=== PATIENT | female | born 1945 | race Two or more races ===

== ENCOUNTER 2023-06-08 21:26 | Inpatient (IN) | payer MEDICARE, OTHER ==
[~2023-06-08] VITALS: Ht 162.6 cm; Wt 66.2 kg
[2023-06-08 22:03] LABS: BASOPHILS # (AUTO) 0.1 K/uL (0.0-0.2); BASOPHILS % (AUTO) 0.8 % (0.0-2.0); EOSINOPHILS % (AUTO) 2.4 % (0.0-6.0); HEMATOCRIT 36 % (33-45); HEMOGLOBIN 12.1 g/dL (11.5-14.8); LYMPHOCYTES % (AUTO) 28.7 % (20.0-44.0); MEAN CORPUSCULAR HGB CONC 33 g/dl (31.0-36.0); MEAN CORPUSCULAR VOLUME 91 fL (82-100); MONOCYTES # (AUTO) 0.6 K/uL (0.1-1.30); MONOCYTES % (AUTO) 8.5 % (2.0-12.0); NEUTROPHILS # (AUTO) 4.3 K/uL (1.8-8.9); NEUTROPHILS % (AUTO) 59.6 % (43.0-81.0); PLATELET COUNT (AUTO) 263 K/uL (150-450); RED BLOOD CELL COUNT(AUTO) 3.98 MIL/uL (4.0-5.2); WHITE BLOOD COUNT (AUTO) 7.1 K/uL (4.3-11.0)
[2023-06-08 22:09] LABS: CALCIUM, SERUM 9.1 mg/dL (8.5-10.1); CARBON DIOXIDE 27 mmol/L (21-32); CHLORIDE 106 mmol/L (98-107); CREATININE 0.9 mg/dL (0.6-1.3); GLUCOSE 113 mg/dL (74-106); POTASSIUM 4.1 mmol/L (3.5-5.1); SODIUM SERUM 141 mmol/L (136-145); UREA NITROGEN, BLOOD 24 mg/dL (7-18)
[2023-06-08 22:15] LABS: ALANINE AMINOTRANSFERASE 44 U/L (12-78); ALBUMIN 3.2 g/dL (3.4-5.0); ALCOHOL, BLOOD < 3 mg/dL (0-10); ALKALINE PHOSPHATASE 80 U/L (46-116); ASPARTATE AMINOTRANSFERASE 30 U/L (15-37); BILIRUBIN,DIRECT 0.1 mg/dL (0.0-0.2); BILIRUBIN,TOTAL 0.5 mg/dL (0.2-1.0); TOTAL PROTEIN, SERUM 6.9 g/dL (6.4-8.2)
--- NOTE | 2023-06-08 22:16 | NUR ---
COVID SWAB COLLECTED WITH CORRECT LABEL AND SENT TO LAB
--- NOTE | 2023-06-08 22:40 | NUR ---
PT COMES TO ER FOR AGRESSIVE BEHAVIOR AT [facility]. PT IS A/O X3 NO S/S OF DISTRESS. BLOOD AND URINE COLLECTED.
[2023-06-08 23:41] LABS: BILIRUBIN,URINE NEGATIVE (NEGATIVE); COLOR,URINE YELLOW (YELLOW); LEUKOCYTE ESTERASE ,URINE NEGATIVE (NEGATIVE); NITRITE, URINE POSITIVE (NEGATIVE); PH,URINE 5.5 (5.0-8.0); PROTEIN,URINE NEGATIVE (NEGATIVE); UGLUCOSE NEGATIVE (NEGATIVE)
[2023-06-09 00:02] LABS: BACTERIA,URINE Moderate /HPF (None Seen)
[2023-06-09 00:03] LABS: SQUAMOUS EPITHELIAL CELL,UR Rare /HPF (None Seen)
[2023-06-09] MEDS ORDERED: NITROFURANTOIN/MONOHYDRATE MACROCRYSTALS 100 MG CAPSULE ONE (01:23)
[2023-06-09] MEDS ORDERED: NITROFURANTOIN/MONOHYDRATE MACROCRYSTALS 100 MG CAPSULE PO ONE (01:30)
--- NOTE | 2023-06-09 02:59 | NUR ---
REPORT GIVEN TO GPS STAFF MASSIMO.
[2023-06-09] MEDS ORDERED: QUET50TA PO (03:01)
[2023-06-09] MEDS ORDERED: SIMV-46 PO (03:01)
[2023-06-09] MEDS ORDERED: MULT-754 PO (03:01)
[2023-06-09] MEDS ORDERED: TRIH2TAB3 PO (03:01)
[2023-06-09] MEDS ORDERED: LORA2ORA5 PO (03:01)
[2023-06-09] MEDS ORDERED: FURO-145 PO (03:01)
[2023-06-09] MEDS ORDERED: PRAM0.253 PO (03:01)
[2023-06-09] MEDS ORDERED: ESCI20TA PO (03:01)
--- NOTE | 2023-06-09 03:14 | NUR ---
TRANSFERRED TO 215 IN STABLE CONDITION
[2023-06-09] MEDS ORDERED: MAGNESIUM HYDROXIDE 30 ML UDC PO PRN (04:00)
[2023-06-09] MEDS ORDERED: MAG HYDROX/AL HYDROX/SIMETH 30 ML UDC PO PRN (04:00)
[2023-06-09] MEDS ORDERED: BLOOD SUGAR DIAGNOSTIC 1 EACH STRIP IN ONE (04:00)
[2023-06-09] MEDS ORDERED: ACETAMINOPHEN 325 MG TABLET PO PRN (04:00)
[2023-06-09] MEDS ORDERED: TEMAZEPAM 7.5 MG CAPSULE PO PRN (04:00)
[2023-06-09 04:26] VITALS: BP 126/70; TEMP 98; O2SAT 98
--- NOTE | 2023-06-09 04:43 | NUR ---
RN NOTES : ADMISSION NOTES: ADMITTED THIS 78Y/O FEMALE PATIENT ADMITTED [facility] ED , INITIALLY FROM [facility]. ADMITTED TO 5150 HOLD PER HOLD GD ,DTO , DUE TO INCREASED AGITATION ,AND AGGRESSIVE BEHAVIOR TOWARDS STAFF AT THE FACILITY,UPON FACE TO FACE ASSESSMENT PATIENT IS A&OX2 PARANOID ,ANXIOUS EASILY AGITATED ,DISORGNIZED, DISHELVED,CONFUSED ,COOPERTIVE/UNCOOPERTIVE AT THIS TIME ,POOR DECISION MAKING, NEEDS FREQUENTLY REDIRECTIONS,DENIES SI /HI AT THIS TIME, PT. IS POOR HISTORIAN, POOR INSIGHT ,POOR JUDGEMENT , BOTH MD AWARE AND NOTIFIED OF THE ADMISSION, BELONGINGS CONTRABAND WERE DONE ,PT. REFUSED SIGNS ADMISSION CONSENT PAPER DUE TO CONFUSED , PT. RIGHTS DISCUSS BY SOLUTIONS EXECUTIVE CLOUD SALES , PROVIDE THE PT. WITH HANDBOOK, AND MEDICATIONS GUIDE, ENVIRONMENTAL SAFETY CHECK DONE, ENCOURAGED PT. VERBALIZED ANY FEELING CONCERN TO STAFF, ORIENT TO UNIT POLICY, NO ACUTE DISTRESS NOTED,VITAL SIGNS WNL ,DENIES ANY PAIN AT THIS TIME,WILL CONTINUE TO MONITOR FOR Q15 SAFETY AND BEHAVIOR.
[2023-06-09] MEDS ORDERED: Z GUARD REMEDY 4 OZ OINT TP PRN (06:30)
[2023-06-09 08:00] VITALS: BP 121/77; TEMP 98.3; O2SAT 96
[2023-06-09] MEDS ORDERED: SENN-18 PO (08:54)
[2023-06-09] MEDS ORDERED: ACET-868 PO (08:54)
[2023-06-09] MEDS ORDERED: TYL2T PO (08:54)
[2023-06-09] MEDS: Z GUARD REMEDY 4 OZ OINT TP SCH (09:21)
--- NOTE | 2023-06-09 10:00 | NUR ---
NURSE NOTE: DR WALLS INFORMED THAT MED RECON NEEDS TO BE DONE.
--- NOTE | 2023-06-09 10:33 | NUR ---
NURIA Clinical Note: Pt placed on a 5150 hold for danger to others and GD. Per hold, pt was aggressive at her facility. [place] [address]; ([phone]). NURIA contacted Izabella admin ([phone]) who stated that she would have to discuss with DON and treatment team if pt is welcomed back. NURIA will contact pt's son Nic ([phone]) and discuss treatment/discharge plan.
--- NOTE | 2023-06-09 10:33 | NUR ---
NURIA Initial Discharge Note: Patient currently resides at [address] [place] [address]; ([phone]). NURIA contacted [facility] admin ([phone]) who stated that she would have to discuss with DON and treatment team if pt is welcomed back. NURIA will contact pt's son Nic ([phone]) and discuss treatment/discharge plan. NURIA will work with the MD, family, and treatment team.
--- NOTE | 2023-06-09 12:55 | NUR ---
NURIA Family Contact: SW contacted pt's son Nic ([phone]) and left a voicemail of treatment/discharge plan. SW left a detailed voicemail.
--- NOTE | 2023-06-09 13:04 | NUR ---
Facility Contact: NURIA received a call from Li admin from [facility] ([phone]) who stated that pt cannot return back and has been violent towards the residents. She stated son had agreed to take pt home. NURIA has contacted son and left a voicemail.
[2023-06-09] MEDS: clonazePAM 0.5 MG TABLET PO PRN (14:07)
--- NOTE | 2023-06-09 14:07 | NUR ---
NURSE NOTE: PT AGITATED AT THIS TIME, KLONOPIN PO ADMIN ORDERED. PT AYDEE WELL. WILL CONT TO MONITOR.
--- NOTE | 2023-06-09 14:10 | NUR ---
NURSE NOTE: DR WALLS REMINDED THAT MED RECON NEEDS TO BE DONE.
--- NOTE | 2023-06-09 15:07 | NUR ---
NURSE NOTE: PT CALM AT THIS TIME, KLONOPIN EFFECTIVE. WILL CONT TO MONITOR.
[2023-06-09] MEDS: ESCITALOPRAM OXALATE (10 MG) 10 MG TABLET PO SCH (15:34)
[2023-06-09] MEDS: DIVALPROEX SODIUM 125 MG CAP.SPRINK PO SCH ×3 (15:34→17:10)
[2023-06-09 16:00] VITALS: BP 125/62; TEMP 98; O2SAT 97
[2023-06-09] MEDS ORDERED: SENNOSIDES 8.6 MG TABLET PO PRN (16:30)
--- NOTE | 2023-06-09 16:50 | NUR ---
NURSE NOTE: AROUND 1630 PT STARTED TO GET AGITATED, YELLED AT STAFF AND SCRATCHED HER. DR MCCLENDON NOTIFIED OF EVENT AND ORDERED ZYPREXA 5MG IM X1 NOW. ZYPREXA ADMINISTERED ORDERED TO R GLUTEUS IRINA AT 1645. PT AYDEE WELL. WILL CONT TO MONITOR.
[2023-06-09] MEDS: PRAMIPEXOLE DI-HCL 0.25 MG TABLET PO SCH ×2 (17:00→17:11)
[2023-06-09] MEDS ORDERED: OLANZAPINE 10 MG VIAL IM ONE (17:00)
[2023-06-09] MEDS: TRIHEXYPHENIDYL HCL 2 MG TABLET PO SCH ×2 (17:00→17:10)
[2023-06-09] MEDS: SIMVASTATIN 20 MG TABLET PO SCH (18:00)
--- NOTE | 2023-06-09 20:01 | NUR ---
PRISONER CLASSIFICATION INTERVIEWER NOTE: RECEIVED PATIENT IN BED ASLEEP.BREATHING NON-LABORED WITH EQUAL RISE AND FALL OF THE CHEST.PATIENT IS DISPLAYING NO S/S OF APPARENT DISTRESS.ALERT AND ORIENTED X2,ANXIOUS PARANOID,GETS IRRITABLE EASILY,DISORGANIZED,AND UNSTEADY GAIT.PATIENT HAS NO C/O PAIN AT THIS TIME.ASSISTING AND TURNING AND POSITIONING Q2H FOR CIRCULATION AND COMFORT.BED IN LOWEST ,LOCKED POSITION WITH SIDE RAILS UP X2. ALL NEEDS MET AND ANTICIPATED.WILL CONTINUE TO MONITOR FOR SAFETY AND BEHAVIOR Q15 MINS WITH THE HELP OF STAFF.
[2023-06-09 20:20] VITALS: BP 121/82; TEMP 97.9; O2SAT 97
[2023-06-09] MEDS: OLANZAPINE ZYDIS 5 MG TAB.RAPDIS PO SCH (21:54)
[2023-06-10 07:10] LABS: BASOPHILS # (AUTO) 0.1 K/uL (0.0-0.2); BASOPHILS % (AUTO) 0.9 % (0.0-2.0); EOSINOPHILS % (AUTO) 3.1 % (0.0-6.0); HEMATOCRIT 39 % (33-45); HEMOGLOBIN 12.9 g/dL (11.5-14.8); LYMPHOCYTES % (AUTO) 27.9 % (20.0-44.0); MEAN CORPUSCULAR HGB CONC 33 g/dl (31.0-36.0); MEAN CORPUSCULAR VOLUME 92 fL (82-100); MONOCYTES # (AUTO) 0.7 K/uL (0.1-1.30); MONOCYTES % (AUTO) 10.1 % (2.0-12.0); NEUTROPHILS # (AUTO) 4.2 K/uL (1.8-8.9); PLATELET COUNT (AUTO) 266 K/uL (150-450); RED BLOOD CELL COUNT(AUTO) 4.28 MIL/uL (4.0-5.2); WHITE BLOOD COUNT (AUTO) 7.2 K/uL (4.3-11.0)
[2023-06-10 07:27] LABS: CALCIUM, SERUM 9.3 mg/dL (8.5-10.1); CREATININE 0.7 mg/dL (0.6-1.3); POTASSIUM 4.2 mmol/L (3.5-5.1)
[2023-06-10 08:00] VITALS: BP 161/92; TEMP 98; O2SAT 93
[2023-06-10] MEDS: PRAMIPEXOLE DI-HCL 0.25 MG TABLET PO SCH ×5 (08:23→17:19)
[2023-06-10] MEDS: NITROFURANTOIN/MONOHYDRATE MACROCRYSTALS 100 MG CAPSULE PO SCH ×3 (08:23→21:00)
[2023-06-10] MEDS: DIVALPROEX SODIUM 125 MG CAP.SPRINK PO SCH ×5 (08:23→17:19)
[2023-06-10] MEDS: ESCITALOPRAM OXALATE (10 MG) 10 MG TABLET PO SCH ×2 (08:23→09:00)
[2023-06-10] MEDS: MULTIVITAMINS,THERAGRAN 1 UDTAB TABLET PO SCH ×2 (08:24→09:00)
[2023-06-10] MEDS: TRIHEXYPHENIDYL HCL 2 MG TABLET PO SCH ×5 (08:24→17:19)
[2023-06-10] MEDS: FUROSEMIDE 20 MG TABLET PO SCH ×2 (08:24→09:00)
[2023-06-10] MEDS: Z GUARD REMEDY 4 OZ OINT TP SCH ×2 (08:24→09:32)
[2023-06-10] MEDS: OLANZAPINE ZYDIS 5 MG TAB.RAPDIS PO SCH ×3 (08:24→21:52)
[2023-06-10 16:00] VITALS: BP 132/69; TEMP 98.2; O2SAT 100
[2023-06-10] MEDS: SIMVASTATIN 20 MG TABLET PO SCH (18:00)
--- NOTE | 2023-06-10 18:02 | NUR ---
NURSE NOTE: PT REFUSED 0900 AND 1700 MEDS. ENCOURAGED MULT TIMES, BUT PT REFUSED.
[2023-06-10 20:17] VITALS: BP 151/52; TEMP 98.2; O2SAT 100
[2023-06-11 08:00] VITALS: BP 154/94; TEMP 98.1; O2SAT 95
[2023-06-11] MEDS: NITROFURANTOIN/MONOHYDRATE MACROCRYSTALS 100 MG CAPSULE PO SCH ×2 (09:00→21:14)
[2023-06-11] MEDS: TRIHEXYPHENIDYL HCL 2 MG TABLET PO SCH ×3 (09:20→17:26)
[2023-06-11] MEDS: ESCITALOPRAM OXALATE (10 MG) 10 MG TABLET PO SCH (09:21)
[2023-06-11] MEDS: MULTIVITAMINS,THERAGRAN 1 UDTAB TABLET PO SCH (09:21)
[2023-06-11] MEDS: OLANZAPINE ZYDIS 5 MG TAB.RAPDIS PO SCH ×3 (09:21→21:59)
[2023-06-11] MEDS: DIVALPROEX SODIUM 125 MG CAP.SPRINK PO SCH ×3 (09:25→17:26)
[2023-06-11] MEDS: PRAMIPEXOLE DI-HCL 0.25 MG TABLET PO SCH ×3 (09:25→17:26)
[2023-06-11] MEDS: FUROSEMIDE 20 MG TABLET PO SCH (09:25)
[2023-06-11] MEDS: Z GUARD REMEDY 4 OZ OINT TP SCH (09:28)
[2023-06-11] MEDS: clonazePAM 0.5 MG TABLET PO PRN ×2 (15:42→22:52)
[2023-06-11 16:00] VITALS: BP 143/79; TEMP 97.8; O2SAT 98
[2023-06-11] MEDS: SIMVASTATIN 20 MG TABLET PO SCH (17:26)
--- NOTE | 2023-06-11 19:31 | NUR ---
CHUCKING AND SAWING MACHINE OPERATOR NOTE - PATIENT COMPLAINTS OF R LEG DISCOMFORT AND PAIN IN RIGHT SIDE OF THE HEAD. PATIENT HAS SLIGHT DELAYED CAPILLARY REFILL, AND COOL TO TOUCH IN COMPARISON TO R SIDE LEG. PATIENT SPEECH IS CLEAR, ABLE TO RISE ARMS IN FRONT OF HER, SMILE SYMMETRICAL. NO CHANGES THROUGHOUT END OF SHIFT. RELAYED INFORMATION TO DEVIL TENDER NURSE.
[2023-06-11 20:27] VITALS: BP 108/61; TEMP 97.9; O2SAT 97
--- NOTE | 2023-06-11 22:00 | NUR ---
RN NOTE MED ORDER FOR ZYPREXA CHANGED FROM 2.5 MG TO 5 MG AFTER 2.5 MG ALREADY GIVEN. PT REFUSED TO TAKE AN ADDITIONAL 2.5 MG AND WILL START NEW DOSE TOMORROW AM. CHARGE NURSE SHAWNA ABDULLAHI.
--- NOTE | 2023-06-11 22:53 | NUR ---
RN NOTE PT VERY ANXIOUS AT THIS TIME. ADMINISTERED KLONOPIN 0.25 MG PRN FOR ANXIETY ORDERED. WASTED 0.25 MG WITH SHAWNA KOTHARI WITNESS, MEDICATION WASTED IN RX DESTROYER. MADE COMFORTABLE IN BED. ALL NEEDS MET AT THIS TIME.
[2023-06-12 08:00] VITALS: BP 153/96; TEMP 97.8; O2SAT 96
[2023-06-12] MEDS: OLANZAPINE ZYDIS 5 MG TAB.RAPDIS PO SCH ×3 (09:27→22:20)
[2023-06-12] MEDS: FUROSEMIDE 20 MG TABLET PO SCH (09:27)
[2023-06-12] MEDS: DIVALPROEX SODIUM 125 MG CAP.SPRINK PO SCH ×4 (09:27→17:33)
[2023-06-12] MEDS: TRIHEXYPHENIDYL HCL 2 MG TABLET PO SCH ×4 (09:27→17:33)
[2023-06-12] MEDS: PRAMIPEXOLE DI-HCL 0.25 MG TABLET PO SCH ×4 (09:27→17:33)
[2023-06-12] MEDS: Z GUARD REMEDY 4 OZ OINT TP SCH (09:28)
[2023-06-12] MEDS: NITROFURANTOIN/MONOHYDRATE MACROCRYSTALS 100 MG CAPSULE PO SCH ×3 (09:28→21:00)
[2023-06-12] MEDS: MULTIVITAMINS,THERAGRAN 1 UDTAB TABLET PO SCH (09:28)
[2023-06-12] MEDS: ESCITALOPRAM OXALATE (10 MG) 10 MG TABLET PO SCH (09:28)
--- NOTE | 2023-06-12 11:05 | NUR ---
Facility Referral: NURIA sent clinicals to [facility] ([phone]) for placement. SW sent H & P, progress notes, and medication list.
--- NOTE | 2023-06-12 13:43 | NUR ---
Facility Contact: SW received a call from Silva bonner from [facility] ([phone]) who stated that pt is accepted.
[2023-06-12 16:00] VITALS: BP 100/55; TEMP 97.8; O2SAT 100
[2023-06-12] MEDS: SIMVASTATIN 20 MG TABLET PO SCH (17:33)
[2023-06-12 20:21] VITALS: BP 113/69; TEMP 98; O2SAT 97
--- NOTE | 2023-06-12 23:00 | NUR ---
rn NOTE:- PT REFUSED MEDS THROUGHOUT SHIFT. MACROBID 100MG , ZYPREXA ZYDIS 5 MG ; ENCOURAGED MULT TIMES. PT REFUSED EACH TIME.
[2023-06-13 08:00] VITALS: BP 124/74; TEMP 97.9; O2SAT 96
[2023-06-13] MEDS: Z GUARD REMEDY 4 OZ OINT TP SCH (09:00)
[2023-06-13] MEDS: TRIHEXYPHENIDYL HCL 2 MG TABLET PO SCH ×3 (09:00→18:12)
[2023-06-13] MEDS: NITROFURANTOIN/MONOHYDRATE MACROCRYSTALS 100 MG CAPSULE PO SCH ×2 (09:00→21:28)
[2023-06-13] MEDS: FUROSEMIDE 20 MG TABLET PO SCH (09:00)
[2023-06-13] MEDS: MULTIVITAMINS,THERAGRAN 1 UDTAB TABLET PO SCH (09:00)
[2023-06-13] MEDS: PRAMIPEXOLE DI-HCL 0.25 MG TABLET PO SCH ×3 (09:00→18:17)
--- NOTE | 2023-06-13 10:54 | NUR ---
COURT NOTIFICATION: SW ATTEMPTED TO CONTACT PT'S SON RENARD ([phone]) AND WAS UNAVAILABLE.
--- NOTE | 2023-06-13 10:54 | NUR ---
COURT HEARING: PATIENT'S COURT HEARING FOR 5150 WAS TODAY AND IT WAS UPHELD FOR DANGER TO OTHERS AND GD.
--- NOTE | 2023-06-13 10:58 | NUR ---
refused all am meds.
[2023-06-13] MEDS: clonazePAM 0.5 MG TABLET PO PRN (11:41)
--- NOTE | 2023-06-13 11:57 | NUR ---
given clonopin for anxiety.
[2023-06-13] MEDS: DIVALPROEX SODIUM 125 MG CAP.SPRINK PO SCH ×2 (12:52→18:13)
[2023-06-13 16:00] VITALS: BP 157/89; TEMP 98.7; O2SAT 95
--- NOTE | 2023-06-13 18:00 | NUR ---
taking all meds this evening and cooperative.
[2023-06-13] MEDS: SIMVASTATIN 20 MG TABLET PO SCH (18:13)
[2023-06-13 20:00] VITALS: BP 135/80; TEMP 97.2; O2SAT 97
[2023-06-13] MEDS: OLANZAPINE ZYDIS 5 MG TAB.RAPDIS PO SCH (21:29)
[2023-06-14 08:00] VITALS: BP 141/90; TEMP 98.6; O2SAT 97
[2023-06-14] MEDS: MULTIVITAMINS,THERAGRAN 1 UDTAB TABLET PO SCH (08:16)
[2023-06-14] MEDS: PRAMIPEXOLE DI-HCL 0.25 MG TABLET PO SCH ×3 (08:16→17:54)
[2023-06-14] MEDS: NITROFURANTOIN/MONOHYDRATE MACROCRYSTALS 100 MG CAPSULE PO SCH ×2 (08:16→21:49)
[2023-06-14] MEDS: TRIHEXYPHENIDYL HCL 2 MG TABLET PO SCH ×3 (08:16→17:54)
[2023-06-14] MEDS: OLANZAPINE ZYDIS 5 MG TAB.RAPDIS PO SCH ×2 (08:16→21:49)
[2023-06-14] MEDS: FUROSEMIDE 20 MG TABLET PO SCH (08:16)
[2023-06-14] MEDS: DIVALPROEX SODIUM 125 MG CAP.SPRINK PO SCH ×3 (08:16→17:54)
[2023-06-14] MEDS: Z GUARD REMEDY 4 OZ OINT TP SCH (08:17)
[2023-06-14] MEDS: ESCITALOPRAM OXALATE (10 MG) 10 MG TABLET PO SCH (08:19)
--- NOTE | 2023-06-14 08:59 | NUR ---
RN-CO: SPOKE W/ KYLIE PT'S RIGHTS ADVOCATE [phone] , THAT DR MCCLENDON CANCELED THE RIESE HEARING. KYLIE WILL ALSO NOTIY THE COMPUTER SCIENCE TEACHER.
[2023-06-14 16:00] VITALS: BP 100/60; TEMP 98.4; O2SAT 97
[2023-06-14] MEDS: SIMVASTATIN 20 MG TABLET PO SCH (18:00)
[2023-06-14 20:00] VITALS: BP 117/63; TEMP 98.4; O2SAT 96
[2023-06-15 08:00] VITALS: BP 127/73; TEMP 97.6; O2SAT 94
[2023-06-15] MEDS: MULTIVITAMINS,THERAGRAN 1 UDTAB TABLET PO SCH (09:00)
[2023-06-15] MEDS: Z GUARD REMEDY 4 OZ OINT TP SCH (09:00)
[2023-06-15] MEDS: TRIHEXYPHENIDYL HCL 2 MG TABLET PO SCH ×3 (10:23→18:37)
[2023-06-15] MEDS: PRAMIPEXOLE DI-HCL 0.25 MG TABLET PO SCH ×3 (10:23→18:37)
[2023-06-15] MEDS: DIVALPROEX SODIUM 125 MG CAP.SPRINK PO SCH ×3 (10:24→18:37)
[2023-06-15] MEDS: ESCITALOPRAM OXALATE (10 MG) 10 MG TABLET PO SCH (10:24)
[2023-06-15] MEDS: NITROFURANTOIN/MONOHYDRATE MACROCRYSTALS 100 MG CAPSULE PO SCH ×2 (10:26→21:11)
[2023-06-15] MEDS: FUROSEMIDE 20 MG TABLET PO SCH (10:26)
[2023-06-15] MEDS: OLANZAPINE ZYDIS 5 MG TAB.RAPDIS PO SCH ×2 (10:26→21:11)
[2023-06-15 16:00] VITALS: BP 120/72; TEMP 97.8; O2SAT 97
[2023-06-15] MEDS: SIMVASTATIN 20 MG TABLET PO SCH (18:00)
[2023-06-15 20:00] VITALS: BP 126/71; TEMP 98.1; O2SAT 95
[2023-06-16 08:00] VITALS: BP 138/80; TEMP 97.8; O2SAT 93
[2023-06-16] MEDS: PRAMIPEXOLE DI-HCL 0.25 MG TABLET PO SCH ×3 (08:53→17:16)
[2023-06-16] MEDS: FUROSEMIDE 20 MG TABLET PO SCH (08:53)
[2023-06-16] MEDS: MULTIVITAMINS,THERAGRAN 1 UDTAB TABLET PO SCH (08:53)
[2023-06-16] MEDS: DIVALPROEX SODIUM 125 MG CAP.SPRINK PO SCH ×3 (08:53→17:12)
[2023-06-16] MEDS: OLANZAPINE ZYDIS 5 MG TAB.RAPDIS PO SCH ×2 (08:53→21:10)
[2023-06-16] MEDS: ESCITALOPRAM OXALATE (10 MG) 10 MG TABLET PO SCH (08:53)
[2023-06-16] MEDS: TRIHEXYPHENIDYL HCL 2 MG TABLET PO SCH ×3 (08:55→17:12)
[2023-06-16] MEDS: Z GUARD REMEDY 4 OZ OINT TP SCH (08:56)
[2023-06-16] MEDS: NITROFURANTOIN/MONOHYDRATE MACROCRYSTALS 100 MG CAPSULE PO SCH ×2 (08:57→21:11)
[2023-06-16 16:00] VITALS: BP 144/88; TEMP 97.9; O2SAT 97
[2023-06-16] MEDS: SIMVASTATIN 20 MG TABLET PO SCH (17:13)
[2023-06-16 20:00] VITALS: BP 134/82; TEMP 97.6; O2SAT 96
[2023-06-17 08:00] VITALS: BP 133/78; TEMP 97.7; O2SAT 95
[2023-06-17] MEDS: Z GUARD REMEDY 4 OZ OINT TP SCH (08:37)
[2023-06-17] MEDS: OLANZAPINE ZYDIS 5 MG TAB.RAPDIS PO SCH ×2 (08:41→21:07)
[2023-06-17] MEDS: TRIHEXYPHENIDYL HCL 2 MG TABLET PO SCH ×3 (08:41→17:54)
[2023-06-17] MEDS: DIVALPROEX SODIUM 125 MG CAP.SPRINK PO SCH ×3 (08:41→17:54)
[2023-06-17] MEDS: NITROFURANTOIN/MONOHYDRATE MACROCRYSTALS 100 MG CAPSULE PO SCH ×2 (08:41→21:07)
[2023-06-17] MEDS: FUROSEMIDE 20 MG TABLET PO SCH (08:41)
[2023-06-17] MEDS: ESCITALOPRAM OXALATE (10 MG) 10 MG TABLET PO SCH (08:41)
[2023-06-17] MEDS: PRAMIPEXOLE DI-HCL 0.25 MG TABLET PO SCH ×3 (08:42→17:54)
[2023-06-17] MEDS: MULTIVITAMINS,THERAGRAN 1 UDTAB TABLET PO SCH (08:42)
[2023-06-17 16:00] VITALS: BP 115/79; TEMP 97.6; O2SAT 94
[2023-06-17] MEDS: SIMVASTATIN 20 MG TABLET PO SCH (17:55)
[2023-06-17 20:00] VITALS: BP 130/75; TEMP 97.8; O2SAT 98
[2023-06-18 08:00] VITALS: BP 126/74; TEMP 97.8; O2SAT 95
[2023-06-18] MEDS: ESCITALOPRAM OXALATE (10 MG) 10 MG TABLET PO SCH ×2 (09:00→09:14)
[2023-06-18] MEDS: DIVALPROEX SODIUM 125 MG CAP.SPRINK PO SCH ×4 (09:00→17:13)
[2023-06-18] MEDS: OLANZAPINE ZYDIS 5 MG TAB.RAPDIS PO SCH ×3 (09:00→21:03)
[2023-06-18] MEDS: NITROFURANTOIN/MONOHYDRATE MACROCRYSTALS 100 MG CAPSULE PO SCH ×3 (09:00→20:58)
[2023-06-18] MEDS: FUROSEMIDE 20 MG TABLET PO SCH ×2 (09:00→09:14)
[2023-06-18] MEDS: MULTIVITAMINS,THERAGRAN 1 UDTAB TABLET PO SCH ×2 (09:00→09:13)
[2023-06-18] MEDS: PRAMIPEXOLE DI-HCL 0.25 MG TABLET PO SCH ×4 (09:00→17:14)
[2023-06-18] MEDS: TRIHEXYPHENIDYL HCL 2 MG TABLET PO SCH ×3 (09:13→17:13)
[2023-06-18] MEDS: Z GUARD REMEDY 4 OZ OINT TP SCH (09:44)
[2023-06-18 16:00] VITALS: BP 114/68; TEMP 98; O2SAT 95
[2023-06-18] MEDS: SIMVASTATIN 20 MG TABLET PO SCH (17:13)
--- NOTE | 2023-06-18 18:56 | NUR ---
RN- CLOSING NOTES PATIENT AWAKE, RESTING IN BED, BREATHING EVEN AND NON LABORED WITH NO S/S OF DISTRESS. PATIENT IS COOPERATIVE, DISORIENTED, SUSPICIOUS, ANXIOUS, DEPRESSED, LABILE, AND RESTLESS. PATIENT IS MEDICATION COMPLIANT. DENIES SI/HI AT THIS TIME. WILL CONTINUE TO MONITOR Q 15 MINUTES FOR SAFETY AND BEHAVIOR.
[2023-06-18 20:00] VITALS: BP 137/65; TEMP 98; O2SAT 98
[2023-06-19 08:00] VITALS: BP 136/75; TEMP 98.6; O2SAT 96
[2023-06-19] MEDS: NITROFURANTOIN/MONOHYDRATE MACROCRYSTALS 100 MG CAPSULE PO SCH ×2 (08:44→20:08)
[2023-06-19] MEDS: DIVALPROEX SODIUM 125 MG CAP.SPRINK PO SCH ×3 (08:44→17:43)
[2023-06-19] MEDS: PRAMIPEXOLE DI-HCL 0.25 MG TABLET PO SCH ×3 (08:44→17:43)
[2023-06-19] MEDS: MULTIVITAMINS,THERAGRAN 1 UDTAB TABLET PO SCH (08:44)
[2023-06-19] MEDS: TRIHEXYPHENIDYL HCL 2 MG TABLET PO SCH ×3 (08:45→17:42)
[2023-06-19] MEDS: ESCITALOPRAM OXALATE (10 MG) 10 MG TABLET PO SCH (08:45)
[2023-06-19] MEDS: OLANZAPINE ZYDIS 5 MG TAB.RAPDIS PO SCH ×2 (08:45→21:45)
[2023-06-19] MEDS: FUROSEMIDE 20 MG TABLET PO SCH (08:45)
[2023-06-19] MEDS: Z GUARD REMEDY 4 OZ OINT TP SCH (08:45)
--- NOTE | 2023-06-19 14:54 | NUR ---
NURIA NOTE: NURIA met with pt's son Nic ([phone]) in the lobby. He was concerned about pt's discharge and placement. NURIA notified that pt is accepted at [facility]. He was agreeable of this because he stated that it has been hard to find placement for pt and she is not allowed to [facility].
[2023-06-19 16:00] VITALS: BP 139/108; TEMP 98.6; O2SAT 97
[2023-06-19] MEDS: SIMVASTATIN 20 MG TABLET PO SCH (17:43)
--- NOTE | 2023-06-19 18:49 | NUR ---
GPS RN CLOSING NOTES: PT IN BED AWAKE. SWEDISH SPEAKER. A/O X 2 ABLE TO MAKE NEEDS KNOWN.NO SOB OR CARDIAC DISTRESS NOTED. PT IS COMPLIANT IN TAKING MEDICATIONS.PT DENIES ANY PAIN AT THIS TIME. PT IS COMPLIANT IN TAKING HER MEDICATIONS.WILL ENDORSE TO FARM OPERATIONS MANAGER NURSE FOR CONTINUITY OF CARE.
--- NOTE | 2023-06-19 19:30 | NUR ---
RN OPENING NOTES RECEIVED PATIENT AWAKE IN BED.PATIENT IS A/O TIMES 2.NO PAIN NOTED.NO SOB NOTED. NO DISTRESS NOTED.ABLE TO MAKE NEEDS KNOWN.ON ROOM AIR AND TOLERATING WELL. NO PAIN NOTED. NO FACIAL GRIMACING NOTED. ALL SAFETY MEASURES IN PLACE. BED LOCKED IN THE LOWEST POSITION. TABLE IN EASY REACH. SIDE RAILS UP TIMES 2. WILL CONTINUE TO MONITOR FOR SAFETY AND BEHAVIOR EVERY 15 MIN.
[2023-06-19 20:32] VITALS: BP 113/70; TEMP 98.2; O2SAT 98
--- NOTE | 2023-06-20 06:31 | NUR ---
RN CLOSING NOTES PATIENT AWAKE IN BED.PATIENT IS A/O TIMES 2.NO PAIN NOTED.NO SOB NOTED. NO DISTRESS NOTED.ABLE TO MAKE NEEDS KNOWN.ON ROOM AIR AND TOLERATING WELL. DUE MEDS GIVEN. NO PAIN NOTED. NO FACIAL GRIMACING NOTED. ALL SAFETY MEASURES IN PLACE. BED LOCKED IN THE LOWEST POSITION. TABLE IN EASY REACH. SIDE RAILS UP TIMES 2. DENIES SI/HI.WILL ENDORSE INCOMING SHIFT NURSE FOR HOWIE.
[2023-06-20 08:00] VITALS: BP 133/78; TEMP 98.6; O2SAT 96
[2023-06-20] MEDS: TRIHEXYPHENIDYL HCL 2 MG TABLET PO SCH ×3 (08:52→16:58)
[2023-06-20] MEDS: MULTIVITAMINS,THERAGRAN 1 UDTAB TABLET PO SCH (08:52)
[2023-06-20] MEDS: FUROSEMIDE 20 MG TABLET PO SCH (08:53)
[2023-06-20] MEDS: OLANZAPINE ZYDIS 5 MG TAB.RAPDIS PO SCH ×2 (08:53→21:05)
[2023-06-20] MEDS: PRAMIPEXOLE DI-HCL 0.25 MG TABLET PO SCH ×3 (08:53→16:58)
[2023-06-20] MEDS: DIVALPROEX SODIUM 125 MG CAP.SPRINK PO SCH ×3 (08:53→16:59)
[2023-06-20] MEDS: NITROFURANTOIN/MONOHYDRATE MACROCRYSTALS 100 MG CAPSULE PO SCH ×2 (08:53→21:04)
[2023-06-20] MEDS: Z GUARD REMEDY 4 OZ OINT TP SCH (08:54)
[2023-06-20] MEDS: ESCITALOPRAM OXALATE (10 MG) 10 MG TABLET PO SCH (08:54)
--- NOTE | 2023-06-20 10:47 | NUR ---
GPS RN OPENING NOTE: PATIENT AWAKE, RESTING IN BED, BREATHING EVEN AND NON LABORED WITH NO S/S OF DISTRESS. PATIENT IS COOPERATIVE, DISORIENTED, SUSPICIOUS, ANXIOUS, DEPRESSED, LABILE, ISOLATIVE AND RESTLESS. PATIENT IS MEDICATION COMPLIANT. DENIES SI/HI AT THIS TIME. WILL CONTINUE TO MONITOR Q 15 MINUTES FOR SAFETY AND BEHAVIOR.
[2023-06-20 16:00] VITALS: BP 94/61; TEMP 98.1; O2SAT 94
[2023-06-20] MEDS: SIMVASTATIN 20 MG TABLET PO SCH (17:00)
[2023-06-20 20:00] VITALS: BP 96/67; TEMP 98.5; O2SAT 95
[2023-06-21 08:00] VITALS: BP 113/76; TEMP 98.9; O2SAT 96
--- NOTE | 2023-06-21 08:09 | NUR ---
NURIA Discharge Note: Patient will be discharged to correction facility to [facility] [address] [place] [address]; . Please arrange Ambulance transportation for patient to be picked up at 2PM. Mental Retardation Aide spoke with JACKELINE, Ribbon Sweatband Operator at [facility]; ([phone]), who stated patient will be accepted at facility today. Patient is alert and oriented x2, and is not able to plan for self-care at this time, but is willing to accept care provided for her at the facility. Patient denies any suicidal or homicidal ideations. Patient is aware and agreeable with discharge plans. NURIA has contacted pts son Nic ([phone]) and he is aware and agreeable of discharge. Patient will continue to follow-up with her Psychiatrist Dr. [place] [address] [place] [address]; ([phone]) and Therapeutic Case Manager Dr. Weber at [address], [place] [address]; ([phone]).
[2023-06-21] MEDS: MULTIVITAMINS,THERAGRAN 1 UDTAB TABLET PO SCH (08:45)
[2023-06-21] MEDS: DIVALPROEX SODIUM 125 MG CAP.SPRINK PO SCH ×2 (08:45→13:00)
[2023-06-21] MEDS: Z GUARD REMEDY 4 OZ OINT TP SCH (08:45)
[2023-06-21] MEDS: NITROFURANTOIN/MONOHYDRATE MACROCRYSTALS 100 MG CAPSULE PO SCH (08:45)
[2023-06-21] MEDS: ESCITALOPRAM OXALATE (10 MG) 10 MG TABLET PO SCH (08:45)
[2023-06-21] MEDS: TRIHEXYPHENIDYL HCL 2 MG TABLET PO SCH ×2 (08:45→13:00)
[2023-06-21] MEDS: FUROSEMIDE 20 MG TABLET PO SCH (08:46)
[2023-06-21] MEDS: PRAMIPEXOLE DI-HCL 0.25 MG TABLET PO SCH ×2 (08:46→13:00)
[2023-06-21] MEDS: OLANZAPINE ZYDIS 5 MG TAB.RAPDIS PO SCH (08:49)
--- NOTE | 2023-06-21 09:00 | NUR ---
RN-CO: DR AGGARWAL GAVE AN ORDERS TO DISCONTINUE HOLD AND DISCHARGE PATIENT TODAY TO [facility]. NOTED. PRIMARY RN MAGDALENA Jimenez MADE AWARE.
--- NOTE | 2023-06-21 13:33 | NUR ---
refused photos of legs.report called to facility.pt. denies suicidal or homicidal ideation.
--- NOTE | 2023-06-21 14:35 | NUR ---
refused afternoon meds.report to drivers.all reports sent with pt.taken to facility via ambulance.
== END 2023-06-21 14:35 | DRG 885 ==
LOC: ER 21:41 → GPS 06-09 02:41
PROVIDERS: ADMIT Psychiatry & Neurology Psychiatry; ATTEND Nurse Practitioner Acute Care
DX: F25.1 Schizoaffective disorder, depressive type (principal); F03.93 Unspecified dementia, unspecified severity, with mood disturbance; F29 Unspecified psychosis not due to a substance or known physiological condition; E78.5 Hyperlipidemia, unspecified; G20 Parkinson's disease; E86.0 Dehydration; Z79.899 Other long term (current) drug therapy; Z20.822 Contact with and (suspected) exposure to COVID-19
CPT/HCPCS: 36415; 80048-TC; 80061-TC; 80076-TC; 80164-TC; 81001; 82962-TC; 85025-TC; 87081-TC; 87086-TC; 97112-TC; 97116-TC; 97530-TC; C9803; G0480; J3490

== ENCOUNTER 2024-01-05 17:34 | Inpatient (IN) | payer MEDICARE, OTHER ==
[~2024-01-05] VITALS: Ht 152.4 cm; Wt 66.7 kg
[~2024-01-05 17:34] MED LIST: ACET-868 PO; FURO-145 PO; MULT-754 PO; PRAM0.253 PO; SENN-18 PO; SIMV-46 PO; TRIH2TAB3 PO; TYL2T PO
[2024-01-05 18:18] LABS: BASOPHILS % (AUTO) 0.4 % (0.0-2.0); EOSINOPHILS # (AUTO) 0.1 K/uL (0.0-0.7); EOSINOPHILS % (AUTO) 0.9 % (0.0-6.0); HEMATOCRIT 39 % (33-45); HEMOGLOBIN 13.1 g/dL (11.5-14.8); LYMPHOCYTES # (AUTO) 2.5 K/uL (0.8-4.8); LYMPHOCYTES % (AUTO) 36.1 % (20.0-44.0); MEAN CORPUSCULAR HEMOGLOBIN 32 PG (26.0-33.0); MEAN CORPUSCULAR HGB CONC 34 g/dl (31.0-36.0); MEAN CORPUSCULAR VOLUME 94 fL (82-100); MONOCYTES # (AUTO) 0.9 K/uL (0.1-1.30); MONOCYTES % (AUTO) 13.2 % (2.0-12.0); NEUTROPHILS # (AUTO) 3.5 K/uL (1.8-8.9); NEUTROPHILS % (AUTO) 49.4 % (43.0-81.0); PLATELET COUNT (AUTO) 202 K/uL (150-450); RED BLOOD CELL COUNT(AUTO) 4.16 MIL/uL (4.0-5.2); RED CELL DISTRIBUTION WIDTH 13.3 % (11.5-15.0)
[2024-01-05] MEDS ORDERED: DIVA-76 PO (18:21)
[2024-01-05] MEDS ORDERED: OLAN10TA3 PO (18:21)
[2024-01-05] MEDS ORDERED: BISA10SU11 RC (18:21)
[2024-01-05] MEDS ORDERED: NA P133E RC (18:21)
[2024-01-05] MEDS ORDERED: SIMV-46 PO (18:21)
[2024-01-05] MEDS ORDERED: ESCI10TA PO (18:21)
[2024-01-05] MEDS ORDERED: MAGN400O6 PO (18:21)
[2024-01-05] MEDS ORDERED: PRAM0.5T3 PO (18:21)
[2024-01-05 18:39] LABS: ALANINE AMINOTRANSFERASE 18 U/L (12-78); ALBUMIN 3.4 g/dL (3.4-5.0); ALCOHOL, BLOOD 3 mg/dL (0-10); ALKALINE PHOSPHATASE 54 U/L (46-116); ASPARTATE AMINOTRANSFERASE 17 U/L (15-37); BILIRUBIN,DIRECT 0.1 mg/dL (0.0-0.2); BILIRUBIN,TOTAL 0.5 mg/dL (0.2-1.0); CARBON DIOXIDE 30 mmol/L (21-32); CHLORIDE 103 mmol/L (98-107); CREATININE 0.9 mg/dL (0.6-1.3); GLUCOSE 98 mg/dL (74-106); POTASSIUM 4.1 mmol/L (3.5-5.1); SODIUM SERUM 139 mmol/L (136-145); TOTAL PROTEIN, SERUM 7.2 g/dL (6.4-8.2); UREA NITROGEN, BLOOD 24 mg/dL (7-18)
[2024-01-05 18:57] LABS: ACETAMINOPHEN <10 ug/ml (10-30); SALICYLATE 0.2 mg/dL (2.8-20.0)
[2024-01-05] MEDS ORDERED: SENNOSIDES 8.6 MG TABLET PO PRN (19:30)
[2024-01-05] MEDS ORDERED: NA PHOS,M-B/NA PHOS,DI-BA 1 EA ENEMA RC PRN (19:30)
[2024-01-05] MEDS ORDERED: MAGNESIUM HYDROXIDE 30 ML UDC PO PRN ×2 (19:30)
[2024-01-05] MEDS ORDERED: ONDANSETRON HCL/PF 4 MG/2 ML VIAL IVP PRN (19:30)
[2024-01-05] MEDS ORDERED: BISACODYL SUPP (10 MG) 10 MG/SUPP.RECT SUPP.RECT RC PRN (19:30)
[2024-01-05] MEDS ORDERED: Z GUARD REMEDY 4 OZ OINT TP PRN (19:30)
[2024-01-05] MEDS ORDERED: MAG HYDROX/AL HYDROX/SIMETH 30 ML UDC PO PRN (19:30)
[2024-01-05 19:41] LABS: APPEARANCE,URINE CLEAR (CLEAR); BILIRUBIN,URINE NEGATIVE (NEGATIVE); BLOOD, URINE NEGATIVE Ery/uL (NEGATIVE); COLOR,URINE YELLOW (YELLOW); KETONES,URINE NEGATIVE (NEGATIVE); LEUKOCYTE ESTERASE ,URINE NEGATIVE (NEGATIVE); NITRITE, URINE NEGATIVE (NEGATIVE); PROTEIN,URINE NEGATIVE (NEGATIVE); UGLUCOSE NEGATIVE (NEGATIVE)
[2024-01-05 19:58] LABS: ADD URINE CULTURE NO; BACTERIA,URINE None seen /HPF (None Seen); RBC,URINE 0-2 /HPF (0-2); SQUAMOUS EPITHELIAL CELL,UR 0-2 /HPF (None Seen); WBC,URINE 0-2 /HPF (0-3)
[2024-01-05 20:33] LABS: AMPHETAMINE, URINE NEGATIVE (NEGATIVE); BARBITURATE, URINE NEGATIVE (NEGATIVE); BENZODIAZEPINE, URINE NEGATIVE (NEGATIVE); CANNABINOID, URINE NEGATIVE (NEGATIVE); COCCAINE, URINE NEGATIVE (NEGATIVE); OPIATE, URINE NEGATIVE (NEGATIVE); PHENCYCLIDINE SCREEN,URINE NEGATIVE (NEGATIVE)
[2024-01-05 21:25] VITALS: BP 119/54; TEMP 97.5; O2SAT 96
[2024-01-05] MEDS: IV NS 0.9% 1,000 ML IV PRN (23:17)
[2024-01-06] MEDS ORDERED: LORAZEPAM INJ 2 MG/ML VIAL IV PRN (00:30)
[2024-01-06 07:53] LABS: BASOPHILS % (AUTO) 0.5 % (0.0-2.0); EOSINOPHILS # (AUTO) 0.1 K/uL (0.0-0.7); HEMATOCRIT 36 % (33-45); HEMOGLOBIN 12.5 g/dL (11.5-14.8); LYMPHOCYTES # (AUTO) 3.5 K/uL (0.8-4.8); LYMPHOCYTES % (AUTO) 49.3 % (20.0-44.0); MEAN CORPUSCULAR HEMOGLOBIN 33 PG (26.0-33.0); MEAN CORPUSCULAR HGB CONC 35 g/dl (31.0-36.0); MEAN CORPUSCULAR VOLUME 94 fL (82-100); MONOCYTES # (AUTO) 0.8 K/uL (0.1-1.30); MONOCYTES % (AUTO) 11.7 % (2.0-12.0); NEUTROPHILS # (AUTO) 2.6 K/uL (1.8-8.9); NEUTROPHILS % (AUTO) 36.5 % (43.0-81.0); PLATELET COUNT (AUTO) 189 K/uL (150-450); RED BLOOD CELL COUNT(AUTO) 3.84 MIL/uL (4.0-5.2); RED CELL DISTRIBUTION WIDTH 13.7 % (11.5-15.0); WHITE BLOOD COUNT (AUTO) 7.2 K/uL (4.3-11.0)
[2024-01-06 08:00] VITALS: BP 144/81; TEMP 98.6; O2SAT 94
[2024-01-06 08:08] LABS: CALCIUM, SERUM 8.9 mg/dL (8.5-10.1); CREATININE 0.9 mg/dL (0.6-1.3); MAGNESIUM 2.7 mg/dL (1.8-2.4); PHOSPHORUS 4.5 mg/dL (2.5-4.9); POTASSIUM 4.3 mmol/L (3.5-5.1)
[2024-01-06] MEDS: OLANZAPINE 10 MG TABLET PO SCH (08:34)
[2024-01-06] MEDS: DIVALPROEX SODIUM 250 MG TABLET.DR PO SCH (08:34)
[2024-01-06] MEDS: ESCITALOPRAM OXALATE (10 MG) 10 MG TABLET PO SCH (08:34)
[2024-01-06] MEDS: PRAMIPEXOLE DI-HCL 0.25 MG TABLET PO SCH (08:34)
[2024-01-06] MEDS: TRIHEXYPHENIDYL HCL 2 MG TABLET PO SCH (08:36)
[2024-01-06] MEDS: ACETAMINOPHEN 325 MG TABLET PO PRN (11:39)
[2024-01-06 20:00] VITALS: BP 123/75; TEMP 97.5; O2SAT 97
[2024-01-07 07:53] LABS: BASOPHILS % (AUTO) 0.3 % (0.0-2.0); EOSINOPHILS # (AUTO) 0.1 K/uL (0.0-0.7); EOSINOPHILS % (AUTO) 1.9 % (0.0-6.0); HEMATOCRIT 35 % (33-45); LYMPHOCYTES # (AUTO) 3.1 K/uL (0.8-4.8); LYMPHOCYTES % (AUTO) 41.8 % (20.0-44.0); MEAN CORPUSCULAR HEMOGLOBIN 33 PG (26.0-33.0); MEAN CORPUSCULAR HGB CONC 35 g/dl (31.0-36.0); MEAN CORPUSCULAR VOLUME 94 fL (82-100); MONOCYTES # (AUTO) 0.8 K/uL (0.1-1.30); MONOCYTES % (AUTO) 11.1 % (2.0-12.0); NEUTROPHILS # (AUTO) 3.3 K/uL (1.8-8.9); NEUTROPHILS % (AUTO) 44.9 % (43.0-81.0); PLATELET COUNT (AUTO) 188 K/uL (150-450); RED CELL DISTRIBUTION WIDTH 13.5 % (11.5-15.0); WHITE BLOOD COUNT (AUTO) 7.4 K/uL (4.3-11.0)
[2024-01-07 08:30] LABS: CALCIUM, SERUM 8.7 mg/dL (8.5-10.1); CREATININE 0.9 mg/dL (0.6-1.3); POTASSIUM 4.1 mmol/L (3.5-5.1)
[2024-01-07 08:57] VITALS: BP 100/56; TEMP 98.4; O2SAT 97
[2024-01-07 16:43] VITALS: BP 126/79; TEMP 98.6; O2SAT 96
[2024-01-07 20:00] VITALS: BP 165/87; TEMP 98.8; O2SAT 95
[2024-01-08 09:50] VITALS: BP 127/68; TEMP 97.7; O2SAT 93
== END 2024-01-08 14:15 | DRG 640 ==
LOC: ER 17:39 → MED 21:12
PROVIDERS: ADMIT Internal Medicine; ATTEND Internal Medicine
DX: E86.0 Dehydration (principal); G93.41 Metabolic encephalopathy; I50.9 Heart failure, unspecified; G20.A1 Parkinson's disease without dyskinesia, without mention of fluctuations; Z20.822 Contact with and (suspected) exposure to COVID-19; F20.9 Schizophrenia, unspecified; Z79.899 Other long term (current) drug therapy; E78.5 Hyperlipidemia, unspecified; Z87.09 Personal history of other diseases of the respiratory system; Z91.018 Allergy to other foods; R79.89 Other specified abnormal findings of blood chemistry; F29 Unspecified psychosis not due to a substance or known physiological condition
CPT/HCPCS: 36415; 70450-TC; 71045-TC; 80048-TC; 80076-TC; 81001; 82962-TC; 83735-TC; 84100-TC; 84484-TC; 85025-TC; 87086-TC; A4223; G0378; G0480; J7030

== ENCOUNTER 2024-08-05 16:06 | Inpatient (IN) | payer MEDICARE, OTHER ==
[~2024-08-05] VITALS: Ht 170.2 cm; Wt 66.7 kg
[~2024-08-05 16:06] MED LIST changes: +BISA10SU11 RC; +DIVA-76 PO; +ESCI10TA PO; +MAGN400O6 PO; -MULT-754 PO; +NA P133E RC; +OLAN10TA3 PO; -PRAM0.253 PO; +PRAM0.5T3 PO
[2024-08-05 17:21] LABS: BASOPHILS % (AUTO) 0.6 % (0.0-2.0); EOSINOPHILS # (AUTO) 0.1 K/uL (0.0-0.7); HEMATOCRIT 41 % (33-45); LYMPHOCYTES # (AUTO) 2.8 K/uL (0.8-4.8); LYMPHOCYTES % (AUTO) 41.2 % (20.0-44.0); MEAN CORPUSCULAR HEMOGLOBIN 32 PG (26.0-33.0); MEAN CORPUSCULAR HGB CONC 34 g/dl (31.0-36.0); MEAN CORPUSCULAR VOLUME 95 fL (82-100); MONOCYTES # (AUTO) 0.8 K/uL (0.1-1.30); MONOCYTES % (AUTO) 11.8 % (2.0-12.0); NEUTROPHILS # (AUTO) 3.1 K/uL (1.8-8.9); NEUTROPHILS % (AUTO) 44.4 % (43.0-81.0); PLATELET COUNT (AUTO) 199 K/uL (150-450); RED BLOOD CELL COUNT(AUTO) 4.37 MIL/uL (4.0-5.2); RED CELL DISTRIBUTION WIDTH 13.6 % (11.5-15.0); WHITE BLOOD COUNT (AUTO) 6.9 K/uL (4.3-11.0)
[2024-08-05 17:32] LABS: INR 0.95 (0.91-1.10); PARTIAL THROMBOPLASTIN TIME 22.8 SEC (24.3-34.3); PROTHROMBIN TIME 9.8 SECS (9.2-11.1)
[2024-08-05 17:33] LABS: CALCIUM, SERUM 9.6 mg/dL (8.5-10.1); CARBON DIOXIDE 30 mmol/L (21-32); CHLORIDE 103 mmol/L (98-107); GLUCOSE 111 mg/dL (74-106); POTASSIUM 4.4 mmol/L (3.5-5.1); SODIUM SERUM 139 mmol/L (136-145); UREA NITROGEN, BLOOD 20 mg/dL (7-18)
[2024-08-05 17:41] LABS: ALANINE AMINOTRANSFERASE 24 U/L (12-78); ALBUMIN 3.6 g/dL (3.4-5.0); ALKALINE PHOSPHATASE 59 U/L (46-116); ASPARTATE AMINOTRANSFERASE 35 U/L (15-37); BILIRUBIN,DIRECT 0.1 mg/dL (0.0-0.2); BILIRUBIN,TOTAL 0.5 mg/dL (0.2-1.0); NT-PRO BNP 59 pg/mL (0-125); TOTAL PROTEIN, SERUM 7.9 g/dL (6.4-8.2)
[2024-08-05] MEDS ORDERED: ACETAMINOPHEN 325 MG TABLET PO PRN ×2 (18:00)
[2024-08-05] MEDS ORDERED: NA PHOS,M-B/NA PHOS,DI-BA 1 EA ENEMA RC PRN (18:00)
[2024-08-05] MEDS ORDERED: MAGNESIUM HYDROXIDE 30 ML UDC PO PRN ×2 (18:00)
[2024-08-05] MEDS ORDERED: ONDANSETRON HCL/PF 4 MG/2 ML VIAL IVP PRN (18:00)
[2024-08-05] MEDS ORDERED: MAG HYDROX/AL HYDROX/SIMETH 30 ML UDC PO PRN (18:00)
[2024-08-05] MEDS ORDERED: BISACODYL SUPP (10 MG) 10 MG/SUPP.RECT SUPP.RECT RC PRN (18:00)
[2024-08-05] MEDS ORDERED: Z GUARD REMEDY 4 OZ OINT TP PRN (18:00)
[2024-08-05] MEDS ORDERED: SENNOSIDES 8.6 MG TABLET PO PRN (18:00)
[2024-08-05] MEDS ORDERED: ENOXAPARIN SODIUM 40 MG/0.4 ML DISP.SYRIN SQ ONE (18:26)
[2024-08-05] MEDS: ENOXAPARIN SODIUM 40 MG/0.4 ML DISP.SYRIN SQ SCH (18:27)
[2024-08-05] MEDS ORDERED: DOCU100C36 PO (18:28)
[2024-08-05] MEDS ORDERED: IBUP-1955 PO (18:28)
[2024-08-05 20:35] VITALS: BP 141/75; TEMP 98.4; O2SAT 97
[2024-08-06 06:14] LABS: BASOPHILS % (AUTO) 0.4 % (0.0-2.0); EOSINOPHILS # (AUTO) 0.1 K/uL (0.0-0.7); EOSINOPHILS % (AUTO) 1.5 % (0.0-6.0); HEMATOCRIT 40 % (33-45); HEMOGLOBIN 13.5 g/dL (11.5-14.8); LYMPHOCYTES # (AUTO) 3.2 K/uL (0.8-4.8); LYMPHOCYTES % (AUTO) 39.2 % (20.0-44.0); MEAN CORPUSCULAR HEMOGLOBIN 32 PG (26.0-33.0); MEAN CORPUSCULAR HGB CONC 34 g/dl (31.0-36.0); MEAN CORPUSCULAR VOLUME 94 fL (82-100); MONOCYTES % (AUTO) 12.4 % (2.0-12.0); NEUTROPHILS # (AUTO) 3.8 K/uL (1.8-8.9); NEUTROPHILS % (AUTO) 46.5 % (43.0-81.0); PLATELET COUNT (AUTO) 202 K/uL (150-450); RED BLOOD CELL COUNT(AUTO) 4.29 MIL/uL (4.0-5.2); RED CELL DISTRIBUTION WIDTH 13.8 % (11.5-15.0); WHITE BLOOD COUNT (AUTO) 8.1 K/uL (4.3-11.0)
[2024-08-06 07:02] LABS: CALCIUM, SERUM 9.8 mg/dL (8.5-10.1); CARBON DIOXIDE 26 mmol/L (21-32); CHLORIDE 104 mmol/L (98-107); CREATININE 0.9 mg/dL (0.6-1.3); GLUCOSE 104 mg/dL (74-106); MAGNESIUM 2.3 mg/dL (1.8-2.4); PHOSPHORUS 3.8 mg/dL (2.5-4.9); SODIUM SERUM 140 mmol/L (136-145); UREA NITROGEN, BLOOD 24 mg/dL (7-18)
[2024-08-06 07:30] VITALS: BP 110/94; TEMP 98.1; O2SAT 96
[2024-08-06] MEDS: OLANZAPINE 10 MG TABLET PO SCH (08:46)
[2024-08-06] MEDS: ESCITALOPRAM OXALATE (10 MG) 10 MG TABLET PO SCH (08:46)
[2024-08-06] MEDS: DIVALPROEX SODIUM 250 MG TABLET.DR PO SCH (08:46)
[2024-08-06] MEDS: PRAMIPEXOLE DI-HCL 0.25 MG TABLET PO SCH (08:46)
[2024-08-06 16:00] VITALS: BP 127/83; TEMP 98.6; O2SAT 96
[2024-08-06 19:00] LABS: APPEARANCE,URINE CLOUDY (CLEAR); BILIRUBIN,URINE NEGATIVE (NEGATIVE); BLOOD, URINE TRACE-INTA Ery/uL (NEGATIVE); COLOR,URINE YELLOW (YELLOW); KETONES,URINE NEGATIVE (NEGATIVE); LEUKOCYTE ESTERASE ,URINE 1+ (NEGATIVE); NITRITE, URINE NEGATIVE (NEGATIVE); PROTEIN,URINE NEGATIVE (NEGATIVE); UGLUCOSE NEGATIVE (NEGATIVE)
[2024-08-06 19:49] LABS: ADD URINE CULTURE YES; BACTERIA,URINE 2+ /HPF (None Seen)
[2024-08-06 20:00] VITALS: BP 126/77; TEMP 98.2; O2SAT 94
[2024-08-06 20:39] VITALS: BP 126/77; TEMP 98.2; O2SAT 94
[2024-08-07 06:54] LABS: BASOPHILS % (AUTO) 0.4 % (0.0-2.0); EOSINOPHILS # (AUTO) 0.2 K/uL (0.0-0.7); HEMATOCRIT 39 % (33-45); HEMOGLOBIN 13.2 g/dL (11.5-14.8); LYMPHOCYTES # (AUTO) 3.7 K/uL (0.8-4.8); LYMPHOCYTES % (AUTO) 49.5 % (20.0-44.0); MEAN CORPUSCULAR HEMOGLOBIN 32 PG (26.0-33.0); MEAN CORPUSCULAR HGB CONC 34 g/dl (31.0-36.0); MEAN CORPUSCULAR VOLUME 95 fL (82-100); MONOCYTES # (AUTO) 0.9 K/uL (0.1-1.30); MONOCYTES % (AUTO) 11.8 % (2.0-12.0); NEUTROPHILS # (AUTO) 2.7 K/uL (1.8-8.9); NEUTROPHILS % (AUTO) 36.3 % (43.0-81.0); PLATELET COUNT (AUTO) 196 K/uL (150-450); RED BLOOD CELL COUNT(AUTO) 4.14 MIL/uL (4.0-5.2); RED CELL DISTRIBUTION WIDTH 13.5 % (11.5-15.0); WHITE BLOOD COUNT (AUTO) 7.4 K/uL (4.3-11.0)
[2024-08-07 07:11] LABS: CALCIUM, SERUM 9.2 mg/dL (8.5-10.1); CARBON DIOXIDE 27 mmol/L (21-32); CHLORIDE 104 mmol/L (98-107); GLUCOSE 82 mg/dL (74-106); MAGNESIUM 2.3 mg/dL (1.8-2.4); PHOSPHORUS 4.2 mg/dL (2.5-4.9); POTASSIUM 4.1 mmol/L (3.5-5.1); SODIUM SERUM 141 mmol/L (136-145); UREA NITROGEN, BLOOD 26 mg/dL (7-18)
[2024-08-07 07:30] VITALS: BP 112/56; TEMP 97.9; O2SAT 96
[2024-08-07] MEDS: CEFTRIAXONE 1 G in IV D5W 50 ML IV SCH (09:56)
[2024-08-07 16:00] VITALS: BP 128/67; TEMP 97.9; O2SAT 96
[2024-08-07 20:00] VITALS: BP 115/59; TEMP 98.1; O2SAT 95
[2024-08-08 06:27] LABS: BASOPHILS % (AUTO) 0.5 % (0.0-2.0); EOSINOPHILS # (AUTO) 0.2 K/uL (0.0-0.7); EOSINOPHILS % (AUTO) 2.8 % (0.0-6.0); HEMATOCRIT 39 % (33-45); HEMOGLOBIN 13.1 g/dL (11.5-14.8); LYMPHOCYTES # (AUTO) 3.8 K/uL (0.8-4.8); LYMPHOCYTES % (AUTO) 52.9 % (20.0-44.0); MEAN CORPUSCULAR HEMOGLOBIN 32 PG (26.0-33.0); MEAN CORPUSCULAR HGB CONC 34 g/dl (31.0-36.0); MEAN CORPUSCULAR VOLUME 94 fL (82-100); MONOCYTES # (AUTO) 0.9 K/uL (0.1-1.30); MONOCYTES % (AUTO) 12.6 % (2.0-12.0); NEUTROPHILS # (AUTO) 2.3 K/uL (1.8-8.9); NEUTROPHILS % (AUTO) 31.2 % (43.0-81.0); PLATELET COUNT (AUTO) 193 K/uL (150-450); RED BLOOD CELL COUNT(AUTO) 4.08 MIL/uL (4.0-5.2); RED CELL DISTRIBUTION WIDTH 13.7 % (11.5-15.0); WHITE BLOOD COUNT (AUTO) 7.3 K/uL (4.3-11.0)
[2024-08-08 07:03] LABS: CALCIUM, SERUM 8.9 mg/dL (8.5-10.1); CARBON DIOXIDE 26 mmol/L (21-32); CHLORIDE 105 mmol/L (98-107); CREATININE 0.8 mg/dL (0.6-1.3); GLUCOSE 83 mg/dL (74-106); MAGNESIUM 2.4 mg/dL (1.8-2.4); PHOSPHORUS 3.9 mg/dL (2.5-4.9); SODIUM SERUM 141 mmol/L (136-145); UREA NITROGEN, BLOOD 29 mg/dL (7-18)
[2024-08-08 07:30] VITALS: BP 113/72; TEMP 97.7; O2SAT 98
[2024-08-08] MEDS ORDERED: CEPH500C2 PO (10:17)
== END 2024-08-08 15:24 | DRG 291 ==
LOC: ER 16:19 → MED 19:57
PROVIDERS: ADMIT Internal Medicine; ATTEND Nurse Practitioner Acute Care
DX: I50.33 Acute on chronic diastolic (congestive) heart failure (principal); G93.41 Metabolic encephalopathy; N39.0 Urinary tract infection, site not specified; I87.309 Chronic venous hypertension (idiopathic) without complications of unspecified lower extremity; R60.9 Edema, unspecified; F32.A Depression, unspecified; F25.9 Schizoaffective disorder, unspecified; F41.9 Anxiety disorder, unspecified; G20.A1 Parkinson's disease without dyskinesia, without mention of fluctuations; E78.5 Hyperlipidemia, unspecified; R53.1 Weakness; R29.3 Abnormal posture; Z87.891 Personal history of nicotine dependence; Z79.899 Other long term (current) drug therapy; R79.89 Other specified abnormal findings of blood chemistry; M25.461 Effusion, right knee; M11.9 Crystal arthropathy, unspecified; B96.89 Other specified bacterial agents as the cause of diseases classified elsewhere
CPT/HCPCS: 36415; 71045-TC; 73564-TC; 80048-TC; 80076-TC; 81001; 83735-TC; 83880; 84100-TC; 84484-TC; 85025-TC; 85730-TC; 87081-TC; 93307-TC; 93970-TC; 97110-TC; 97112-TC; 97530-TC; A4223; G0378; J0696; J1650; J7050; J7060

== ENCOUNTER 2025-03-30 13:11 | Inpatient (IN) | payer MEDICARE, OTHER ==
[~2025-03-30] VITALS: Ht 170.2 cm; Wt 74.8 kg
[~2025-03-30 13:11] MED LIST changes: +CEPH500C2 PO; +DOCU100C36 PO; +IBUP-1955 PO
[2025-03-30 14:03] LABS: BASOPHILS # (AUTO) 0.1 K/uL (0.0-0.2); BASOPHILS % (AUTO) 0.6 % (0.0-2.0); EOSINOPHILS # (AUTO) 0.2 K/uL (0.0-0.7); HEMATOCRIT 41 % (33-45); LYMPHOCYTES # (AUTO) 2.6 K/uL (0.8-4.8); LYMPHOCYTES % (AUTO) 28.5 % (20.0-44.0); MEAN CORPUSCULAR HEMOGLOBIN 32 PG (26.0-33.0); MEAN CORPUSCULAR HGB CONC 35 g/dl (31.0-36.0); MEAN CORPUSCULAR VOLUME 92 fL (82-100); MONOCYTES # (AUTO) 1.3 K/uL (0.1-1.30); MONOCYTES % (AUTO) 14.6 % (2.0-12.0); NEUTROPHILS # (AUTO) 4.9 K/uL (1.8-8.9); NEUTROPHILS % (AUTO) 54.3 % (43.0-81.0); PLATELET COUNT (AUTO) 241 K/uL (150-450); RED BLOOD CELL COUNT(AUTO) 4.41 MIL/uL (4.0-5.2); RED CELL DISTRIBUTION WIDTH 13.7 % (11.5-15.0)
[2025-03-30 14:16] LABS: EOSINOPHILS % (MANUAL) 2 % (0-4); LYMPHOCYTES % (MANUAL) 38 % (16-48); MONOCYTES % (MANUAL) 12 % (0-11.0); NEUTROPHILS % (MANUAL) 48 (42-76); PLATELET ESTIMATE ADEQUATE
[2025-03-30 14:17] LABS: ANISOCYTOSIS 1+; STOMATOCYTES 1+
[2025-03-30 14:27] LABS: CALCIUM, SERUM 9.2 mg/dL (8.5-10.1); CARBON DIOXIDE 29 mmol/L (21-32); CHLORIDE 106 mmol/L (98-107); CREATININE 0.8 mg/dL (0.6-1.3); GLUCOSE 142 mg/dL (74-106); POTASSIUM 4.3 mmol/L (3.5-5.1); SODIUM SERUM 142 mmol/L (136-145); UREA NITROGEN, BLOOD 20 mg/dL (7-18)
[2025-03-30] MEDS ORDERED: CRAN425C6 PO (14:49)
[2025-03-30 15:24] LABS: BILIRUBIN,DIRECT 0.1 mg/dL (0.0-0.2); BILIRUBIN,TOTAL 0.6 mg/dL (0.2-1.0)
[2025-03-30 15:25] LABS: ALANINE AMINOTRANSFERASE 17 U/L (12-78); ALBUMIN 3.1 g/dL (3.4-5.0); ALKALINE PHOSPHATASE 75 U/L (46-116); ASPARTATE AMINOTRANSFERASE 15 U/L (15-37); NT-PRO BNP 120 pg/mL (0-125); TOTAL PROTEIN, SERUM 7.6 g/dL (6.4-8.2)
[2025-03-30 16:15] VITALS: BP 155/90; TEMP 97.8; O2SAT 98
[2025-03-30 20:00] VITALS: BP 140/89; TEMP 98.2; O2SAT 97
[2025-03-31] MEDS ORDERED: ONDANSETRON HCL/PF 4 MG/2 ML VIAL IVP PRN
[2025-03-31] MEDS ORDERED: MAGNESIUM HYDROXIDE 30 ML UDC PO PRN
[2025-03-31] MEDS ORDERED: ENOXAPARIN SODIUM 40 MG/0.4 ML DISP.SYRIN SQ SCH
[2025-03-31] MEDS ORDERED: Z GUARD REMEDY 4 OZ OINT TP PRN
[2025-03-31] MEDS ORDERED: ACETAMINOPHEN 325 MG TABLET PO PRN
[2025-03-31] MEDS ORDERED: BISACODYL SUPP (10 MG) 10 MG/SUPP.RECT SUPP.RECT RC PRN
[2025-03-31] MEDS ORDERED: MAG HYDROX/AL HYDROX/SIMETH 30 ML UDC PO PRN
[2025-03-31] MEDS: ENOXAPARIN SODIUM 40 MG/0.4 ML DISP.SYRIN SQ SCH (00:48)
[2025-03-31 06:55] LABS: CALCIUM, SERUM 9.1 mg/dL (8.5-10.1); CREATININE 0.8 mg/dL (0.6-1.3); MAGNESIUM 2.3 mg/dL (1.8-2.4); PHOSPHORUS 3.4 mg/dL (2.5-4.9); POTASSIUM 3.9 mmol/L (3.5-5.1)
[2025-03-31 07:07] LABS: BASOPHILS % (AUTO) 0.3 % (0.0-2.0); EOSINOPHILS # (AUTO) 0.2 K/uL (0.0-0.7); EOSINOPHILS % (AUTO) 2.4 % (0.0-6.0); HEMATOCRIT 38 % (33-45); HEMOGLOBIN 13.1 g/dL (11.5-14.8); LYMPHOCYTES # (AUTO) 2.8 K/uL (0.8-4.8); LYMPHOCYTES % (AUTO) 32.7 % (20.0-44.0); MEAN CORPUSCULAR HEMOGLOBIN 32 PG (26.0-33.0); MEAN CORPUSCULAR HGB CONC 34 g/dl (31.0-36.0); MEAN CORPUSCULAR VOLUME 92 fL (82-100); MONOCYTES # (AUTO) 1.4 K/uL (0.1-1.30); MONOCYTES % (AUTO) 15.9 % (2.0-12.0); NEUTROPHILS # (AUTO) 4.1 K/uL (1.8-8.9); NEUTROPHILS % (AUTO) 48.7 % (43.0-81.0); PLATELET COUNT (AUTO) 254 K/uL (150-450); RED BLOOD CELL COUNT(AUTO) 4.16 MIL/uL (4.0-5.2); RED CELL DISTRIBUTION WIDTH 13.6 % (11.5-15.0); WHITE BLOOD COUNT (AUTO) 8.5 K/uL (4.3-11.0)
[2025-03-31 08:00] VITALS: BP 131/78; TEMP 98.4; O2SAT 93
[2025-03-31] MEDS: TRIHEXYPHENIDYL HCL 2 MG TABLET PO SCH (08:16)
[2025-03-31] MEDS: DIVALPROEX SODIUM 250 MG TABLET.DR PO SCH (08:17)
[2025-03-31] MEDS: ESCITALOPRAM OXALATE (10 MG) 10 MG TABLET PO SCH (08:17)
[2025-03-31] MEDS: PANTOPRAZOLE 40 MG VIAL IV SCH (08:17)
[2025-03-31] MEDS: DOCUSATE SODIUM 100 MG CAPSULE PO SCH (08:17)
[2025-03-31] MEDS: OLANZAPINE 10 MG TABLET PO SCH (08:17)
[2025-03-31] MEDS: FUROSEMIDE 20 MG TABLET PO SCH (08:17)
[2025-03-31] MEDS ORDERED: Medication Not On Formulary EA (Cranberry Extract (Cranberry) 450 MG) PO SCH (09:00)
[2025-03-31] MEDS: PRAMIPEXOLE DI-HCL 0.25 MG TABLET PO SCH (12:17)
[2025-03-31 16:00] VITALS: BP 137/76; TEMP 98.8; O2SAT 98
[2025-03-31 20:00] VITALS: BP 107/73; TEMP 98.1; O2SAT 98
[2025-03-31] MEDS: SENNOSIDES 8.6 MG TABLET PO SCH (21:04)
[2025-03-31] MEDS: SIMVASTATIN 20 MG TABLET PO SCH (21:04)
[2025-04-01 07:30] VITALS: BP 115/84; TEMP 97.6; O2SAT 96
[2025-04-01 08:00] VITALS: BP 115/84; TEMP 97.6; O2SAT 93
[2025-04-01] MEDS: PANTOPRAZOLE 40 MG TABLET.DR PO SCH (09:54)
[2025-04-01 11:24] LABS: APPEARANCE,URINE CLEAR (CLEAR); BILIRUBIN,URINE NEGATIVE (NEGATIVE); BLOOD, URINE NEGATIVE Ery/uL (NEGATIVE); COLOR,URINE DARK YELLOW (YELLOW); KETONES,URINE TRACE mg/dL (NEGATIVE); LEUKOCYTE ESTERASE ,URINE NEGATIVE (NEGATIVE); NITRITE, URINE NEGATIVE (NEGATIVE); PROTEIN,URINE NEGATIVE (NEGATIVE); UGLUCOSE NEGATIVE (NEGATIVE)
[2025-04-01 11:33] LABS: ADD URINE CULTURE NO; BACTERIA,URINE Rare /HPF (None Seen); SQUAMOUS EPITHELIAL CELL,UR 0-2 /HPF (None Seen); WBC,URINE 0-2 /HPF (0-3)
[2025-04-01 16:00] VITALS: BP 139/80; TEMP 98.2; O2SAT 97
[2025-04-01 20:00] VITALS: BP 117/71; TEMP 98.4; O2SAT 95
[2025-04-01 20:35] VITALS: BP 117/71; TEMP 98.4; O2SAT 95
[2025-04-02 07:30] VITALS: BP 106/68; TEMP 98.6; O2SAT 97
== END 2025-04-02 13:00 | DRG 641 ==
LOC: ER 13:19 → TELE 15:07 → MED 03-31 01:04
PROVIDERS: ATTEND Student in an Organized Health Care Education/Training Program
DX: E86.0 Dehydration (principal); E44.1 Mild protein-calorie malnutrition; I50.32 Chronic diastolic (congestive) heart failure; R62.7 Adult failure to thrive; I11.0 Hypertensive heart disease with heart failure; Z79.899 Other long term (current) drug therapy; Z87.891 Personal history of nicotine dependence; F25.9 Schizoaffective disorder, unspecified; E78.5 Hyperlipidemia, unspecified; Z91.018 Allergy to other foods; G20.A1 Parkinson's disease without dyskinesia, without mention of fluctuations; R29.3 Abnormal posture; E88.09 Other disorders of plasma-protein metabolism, not elsewhere classified; R79.89 Other specified abnormal findings of blood chemistry; F32.9 Major depressive disorder, single episode, unspecified
CPT/HCPCS: 36415; 71045-TC; 80048-TC; 80076-TC; 81001; 83735-TC; 83880; 84100-TC; 84155; 84165; 84484-TC; 85025-TC; 87081-TC; 93307-TC; 93970-TC; 97110-TC; 97116-TC; 97530-TC; G0378; J1650; J2470